=== PATIENT | female | born 1970 | race Caucasian/White ===

== ENCOUNTER 2023-08-29 18:24 | Outpatient (RCR) | payer OTHER, SELFPAY | END 2023-08-29 23:59 | disposition home or self-care (01) | LOC: RPT 18:24 | PROVIDERS: ATTENDING PHYSICIAN Specialist; FAMILY PHYSICIAN Physician Assistant | DX: M54.2 Cervicalgia (principal); Z73.6 Limitation of activities due to disability | CPT/HCPCS: 97010; 97110; 97162 ==

== ENCOUNTER 2023-09-17 18:54 | Outpatient (RCR) | payer OTHER, SELFPAY | END 2023-09-17 23:59 | disposition home or self-care (01) | LOC: RPT 18:54 | PROVIDERS: ATTENDING PHYSICIAN Specialist; FAMILY PHYSICIAN Physician Assistant | DX: M54.2 Cervicalgia (principal); Z73.6 Limitation of activities due to disability; M62.81 Muscle weakness (generalized) | CPT/HCPCS: 97010; 97110 ==

== ENCOUNTER 2023-12-17 12:46 | Emergency (ER) | payer OTHER, SELFPAY ==
[2023-12-17 13:11] VITALS: BP 182/110
[2023-12-17 13:29] LABS: % Basophils 0.7 % (0-2); % Eosinophils 0.7 % (0-6); % Immature Granulocytes 0.3 % (0-0.5); % Lymphocytes 32.8 % (20.5-51.1); % Monocytes 4.6 % (1.7-9.3); % Neutrophils 60.9 % (42.2-75.2); Absolute Basophils 0.1 10^3/uL (0-0.2); Absolute Eosinophils 0.1 10^3/uL (0-0.7); Absolute Lymphocytes 2.2 10^3/uL (1.2-3.4); Absolute Monocytes 0.3 10^3/uL (0.1-0.6); Absolute Neutrophils 4.1 10^3/uL (1.4-6.5); Hematocrit 43.1 % (37.0-47.0); Hemoglobin 14.7 g/dL (12.0-16.0); Mean Corp Hgb Conc. 34.1 g/dL (33.0-37.0); Mean Corpuscular Volume 93.7 fL (81.0-99.0); Mean Platelet Volume 9.2 fL (7.4-10.4); Nucleated Red Blood Cells % 0 %; Platelet Count 317 10^3/uL (130-400); Red Cell Dist. Width 14.3 % (11.5-14.5); White Blood Cell Count 6.7 10^3/uL (4.8-10.8)
[2023-12-17 13:47] LABS: ALT (SGPT) 13 U/L (0-35); AST (SGOT) 20 U/L (14-36); Albumin 4.4 g/dl (3.5-5.0); Alkaline Phosphatase 78 U/L (38-126); Blood Urea Nitrogen 16 mg/dl (7-17); Calcium 9.6 mg/dl (8.4-10.2); Carbon Dioxide 29 mmol/L (22-30); Chloride 104 mmol/L (98-107); Glucose 86 mg/dl (70-99); Potassium 4.4 mmol/L (3.5-5.1); Sodium 140 mmol/L (135-145); Total Bilirubin 0.6 mg/dl (0.2-1.3); Total Protein 7.6 g/dl (6.3-8.2); eGFR > 60.00
[2023-12-17 16:22] VITALS: BP 159/90
--- NOTE | 2023-12-17 18:59 | ED.GENMED ---
History of Present Illness
General
Chief Complaint: Anal/Rectal Problem
Time Seen by Provider: 12/17/23 18:59
Travel History
Have you had any contact with someone who has COVID-19?: No
Do you have any symptoms of coronavirus? Fever > 100 degrees, chills, cough, shortness of breath, sore throat, loss of taste or smell, muscle aches, or headache?: No
History of Present Illness
History of Present Illness:
HPI: Patient presents due to concerns for the hemorrhoid. This has been ongoing for the past several weeks. She has tried steroid suppository ordered by her PMD which may or may not have helped. She currently does not have pain but request
something topically. She reports a history of fibromyalgia as well. About 5 days ago, she did anal bleeding as well and PMD recommended she come in here for further evaluation.
EXAM:
GENERAL: Well appearing in no distress
HEENT: Moist oral mucosa
CARDIOVASCULAR: No murmurs, normal heart rate, regular rhythm, No chest wall tenderness
PULMONARY: No respiratory distress, breath sounds are clear and equal
ABDOMEN: Soft with no peritoneal signs, no tenderness, with Niya RN in the room, anal examination shows a small nontender subcentimeter external hemorrhoid with no evidence for rectal prolapse nor abscess
NEUROLOGIC: Excellent strength all extremities, no coordination deficits
PSYCHIATRIC: Appropriate mental status, appears very anxious
EXTREMITIES: Nontender, no edema, moves all extremities equally
SKIN: No rash, no lesions
TIME OF INITIAL ENCOUNTER: 7:15 PM
NUMBER AND COMPLEXITY OF PROBLEMS ADDRESSED AT THE ENCOUNTER
� Chronic conditions affecting care: Has had gastric bypass, high blood pressure, anxiety/depression
� Acute Exacerbation and/or Progression of Chronic Illness:
� Differential Diagnosis includes: External hemorrhoid, external hemorrhoid, internal hemorrhoidal bleeding, diverticular, abscess
AMOUNT AND/OR COMPLEXITY OF DATA TO BE REVIEWED AND ANALYZED
� I performed an independent evaluation of and my interpretation is:
EKG:
CT:
X-rays:
Laboratory Studies: White count normal, hemoglobin 14.7, chemistries unremarkable
Other:
� Review of other/old records:
� Clinical information was obtained by an independent historian: None needed
� Prescriptions/Medications Considered but not given:
� Further testing considered but not performed: No clear indication for imaging at this time
RISK OF COMPLICATIONS AND/OR MORBIDITY OR MORTALITY OF PATIENT MANAGEMENT
� Social determinants of health affecting care: Lives at home an hour away
� Discussion with other providers: I message Dr. Thomas covering for colorectal surgery in order to try to expedite outpatient follow-up.
� Escalation of care including admission/observation vs risk of discharge considered: She has an appoint to see colorectal in about 2 weeks. She is stable currently
Past History
Past History
ED Past Medical History: HTN and Other (Anemia, Migraines)
ED Past Surgical History: Other (Gastric sleeve)
Social History
Tobacco: Former smoker
Alcohol: Occasional
Personal:
Living: with family (Lives with her son)
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
Phy Exam
Physical Exam
Physical Exam:
See HPI
Course
Orders/Labs/Results
Orders:
Orders
12/17/23 13:17
Complete Blood Count/With Diff Urgent
Comprehensive Metabolic Panel Urgent
Abnormal Lab Results
12/17/23
13:17
[facility] 32.0 H pg
(27.0-31.0)
12/17/23 13:17
12/17/23 13:17
Vital Signs
Initial and Last Documented VS:
Initial Vital Signs
Temp Pulse Resp BP Pulse Ox
98.4 F 77 16 182/110 98
12/17/23 13:11 12/17/23 13:11 12/17/23 13:11 12/17/23 13:11 12/17/23 13:11
Last Documented Vital Signs
Temp Pulse Resp BP Pulse Ox
98.5 F 70 17 159/90 96
12/17/23 16:22 12/17/23 16:22 12/17/23 16:22 12/17/23 16:22 12/17/23 16:22
*Critical Care Note
Total Time (30-74mins, 75-104mins- exclusive of procedures): Not Applicable
ED Attending Note
-
Portions of this chart may have been created with voice recognition software.� Occasional wrong word or��sound alike� substitutions may have occurred due to the inherent limitations of voice recognition software.
Discharge Plan
Departure
Patient Disposition: Home (Routine Discharge)
Date of Disposition: 12/17/23
Time of Disposition: 19:45
Patient with high blood pressure during this ER visit?: Yes
Discharge Problem:
External hemorrhoid
Instructions: Hemorrhoids (DC)
Prescriptions:
New
lidocaine HCl [Lidocaine Viscous] 2 % solution
1 applic topical TID PRN (Reason: Pain) Qty: 100 0RF
Referrals:
Theodore Thomas MD [Active] - Follow up in 2-3 days
Stand Alone Forms: Return to Work
Activity Restrictions/Additional Instructions:
Dr. Thomas is the on-call doctor for colorectal surgery�I have not heard back from him yet tonight. Try calling their office to see if they could see you sooner. Your blood work is normal. I sent a prescription for viscous lidocaine to your
pharmacy�you can use this 3 times a day to the affected area�this just helps the pain topically by numbing the area.
Interventions
Interventions:
*ED COVID-19 Vaccine History Last Done: 12/17/23 13:11
Discharge Date and Time
Print Language: MONTSERRATIAN
[2023-12-17 20:19] VITALS: BP 143/75
== END 2023-12-17 20:20 | disposition home or self-care (01) ==
LOC: EMR 12:46
PROVIDERS: Emergency Medicine; EMERGENCY PHYSICIAN Emergency Medicine
DX: K64.4 Residual hemorrhoidal skin tags (principal); I10 Essential (primary) hypertension; D64.9 Anemia, unspecified; G43.909 Migraine, unspecified, not intractable, without status migrainosus; M79.7 Fibromyalgia; Z87.891 Personal history of nicotine dependence; Z88.1 Allergy status to other antibiotic agents; Z91.011 Allergy to milk products
CPT/HCPCS: 99283; 80053; 85025

== ENCOUNTER 2024-08-14 17:21 | Emergency (ER) | payer SELFPAY ==
[2024-08-14 17:53] VITALS: BP 170/110
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
== END 2024-08-14 19:18 | disposition home or self-care (01) ==
LOC: EMR 17:21
PROVIDERS: EMERGENCY PHYSICIAN Student in an Organized Health Care Education/Training Program; FAMILY PHYSICIAN Student in an Organized Health Care Education/Training Program
DX: S16.1XXA Strain of muscle, fascia and tendon at neck level, initial encounter (principal); S39.012A Strain of muscle, fascia and tendon of lower back, initial encounter; M25.512 Pain in left shoulder; V49.40XA Driver injured in collision with unspecified motor vehicles in traffic accident, initial encounter; I10 Essential (primary) hypertension; Z87.891 Personal history of nicotine dependence
CPT/HCPCS: 99284; 72110; 73030

== ENCOUNTER → 2024-10-13 15:00 | Outpatient (REF) | payer OTHER, SELFPAY | LOC: PAVMRI 15:00 | PROVIDERS: ATTENDING PHYSICIAN Specialist; FAMILY PHYSICIAN Student in an Organized Health Care Education/Training Program | DX: M54.12 Radiculopathy, cervical region (principal) | CPT/HCPCS: 72141 ==

== ENCOUNTER 2025-04-03 07:17 | Outpatient (RCR) | payer OTHER, SELFPAY | END 2025-04-03 23:59 | disposition home or self-care (01) | LOC: RPT 07:17 | PROVIDERS: ATTENDING PHYSICIAN Obstetrics & Gynecology; FAMILY PHYSICIAN Student in an Organized Health Care Education/Training Program | DX: R10.2 Pelvic and perineal pain (principal); M62.89 Other specified disorders of muscle; N95.8 Other specified menopausal and perimenopausal disorders; Z73.6 Limitation of activities due to disability; R26.89 Other abnormalities of gait and mobility | CPT/HCPCS: 97163; 97530 ==

== ENCOUNTER → 2025-04-07 13:33 | Outpatient (REF) | payer OTHER, SELFPAY | LOC: RAD 13:33 | PROVIDERS: ATTENDING PHYSICIAN Student in an Organized Health Care Education/Training Program | DX: M79.671 Pain in right foot (principal) | CPT/HCPCS: 73610; 73630 ==

== ENCOUNTER 2025-06-05 07:34 | Outpatient (RCR) | payer OTHER, SELFPAY | END 2025-06-05 23:59 | disposition home or self-care (01) | LOC: RPT 07:34 | PROVIDERS: ATTENDING PHYSICIAN Obstetrics & Gynecology; FAMILY PHYSICIAN Student in an Organized Health Care Education/Training Program | DX: R10.2 Pelvic and perineal pain (principal); M62.89 Other specified disorders of muscle; N95.8 Other specified menopausal and perimenopausal disorders; R10.20 Pelvic and perineal pain unspecified side; Z73.6 Limitation of activities due to disability; R26.89 Other abnormalities of gait and mobility | CPT/HCPCS: 97110; 97140; 97530 ==